=== PATIENT | male | born 1980 | race Caucasian/White ===

== ENCOUNTER 2018-08-22 21:57 | Emergency (ER) | payer OTHER ==
[2018-08-22 22:12] VITALS: BP 117/73; PULSE 63; TEMP 98.1; BMI 33.7
[2018-08-22] MEDS ORDERED: IBUPROFEN 600 MG TABLET (FP) PO ONE ×2 (22:37→22:45)
--- NOTE | 2018-08-22 22:39 | PDOC ---
History of Present Illness - General Chief Complaint: Pain, Acute Stated Complaint: HIP PAIN Time Seen by Provider: 08/22/18 22:29 History Source: Patient Exam Limitations: No Limitations - History of Present Illness Initial Comments: 38 yo M w no sig pmh presents to the ER with lower left sided back pain which radiates down his left leg after he was lifting a heavy object at work. He lifts heavy objects on a daily basis at his job and felt an acute strain as he was lifting something very heavy today. Since his back pain began it has remained the same in character. He describes it as a lightening sensation that runs from his back down his legs. He has not had any urinary or bowel incontinence. He is able to feel his entire groin and anal region. He denies any dysuria, frequency, or urgency. Also denies any associated hematuria, fevers, chills, or infections. PCP: Dr. Tiwari Psh: None reported Allergies: NKA, NKDA Social Hx: Denies smoking, drinking, and substance usage Past History - Past Medical History Allergies/Adverse Reactions: Allergies Allergy/AdvReac Type Severity Reaction Status Date / Time No Known Allergies Allergy Verified 08/22/18 22:43 COPD: No - Suicide/Smoking/Psychosocial Hx Smoking History: Never smoked Information on smoking cessation initiated: No Hx Alcohol Use: No Drug/Substance Use Hx: No Review of Systems - Review of Systems Able to Perform ROS?: Yes Comments:: CONSTITUTIONAL: Absent: fever, no chills, no fatigue EYES: Absent: visual changes ENT: Absent: ear pain, no sore throat CARDIOVASCULAR: Absent: chest pain, no palpitations RESPIRATORY: Absent: cough, no SOB GI: Absent: abdominal pain, no nausea, no vomiting, no constipation, no diarrhea GENITOURINARY: Absent: dysuria, no frequency, no hematuria MUSKULOSKELETAL: Present: Back pain Absent: no arthralgia, no myalgia SKIN: Absent: rash NEURO: Absent: headache *Physical Exam - Vital Signs Last Vital Signs Temp Pulse Resp BP Pulse Ox 98.1 F 63 20 117/73 99 08/22/18 22:07 08/22/18 22:07 08/22/18 22:07 08/22/18 22:07 08/22/18 22:07 - Physical Exam Comments: GENERAL: Well-appearing, well-nourished. No apparent distress. HEENT: Normocephalic, atraumatic. PERRL, EOM intact. CARDIOVASCULAR: Normal S1, S2. Regular rate and rhythm. PULMONARY: No evidence of respiratory distress. Lungs clear to auscultation bilaterally. No wheezing, rales or rhonchi. ABDOMEN: Soft, non-distended, non-tender. EXTREMITIES: Limited ROM in the left leg Normal ROM in other extremities. No gross deformities. SKIN: Warm, dry. No rash NEUROLOGICAL: No focal neurological deficits. Moderate Sedation - Procedure Monitoring Vital Signs: Procedure Monitoring Vital Signs Temperature 98.1 F 08/22/18 22:07 Pulse Rate 63 08/22/18 22:07 Respiratory Rate 20 08/22/18 22:07 Blood Pressure 117/73 08/22/18 22:07 O2 Sat by Pulse Oximetry (%) 99 08/22/18 22:07 Medical Decision Making - Medical Decision Making 38 yo M w no sig pmh presents to the ER with lower left sided back pain which radiates down his left leg after he was lifting a heavy object at work. DDx IBNLT: Sciatica vs herniated disc, kidney stones, uti, AAA Plan: UA, ibuprofen, re-assess. Patient has no evidence of cauda equina or conus medularis. Normal DTRs Full control of bowel and bladder. Will DC patient with outpatient follow up *DC/Admit/Observation/Transfer Diagnosis at time of Disposition: Sciatica - Discharge Dispostion Disposition: HOME Condition at time of disposition: Stable Decision to Admit order: No - Referrals Referrals: La Nena Marshall MD [Primary Care Provider] - Kevyn Arciniega MD, FA[facility] [Staff Physician] - Ant Karimi MD [Staff Physician] - - Patient Instructions Printed Discharge Instructions: DI for Sciatica, Sciatica (Alternative Therapy) , Early Surgery Relieves Sciatica Pain Faster, but Nonsurgical Treatment Is J Additional Instructions: You came into the ER with back pain. We believe you have sciatica. Take ibuprofen as needed for pain control. Drink plenty of fluids. It is important for you to schedule an appointment with either an orthopedist or a neurosurgeon to follow you back condition. You need to do physical therapy to help your back get better. Come back to the ER immediately if your pain worsens, you get a fever, cannot control your bladder or bowels, lose any feeling around your groin, or have any other new or worsening concerns. Thank you for coming to the [facility]. We hope you feel better soon! Print Language: KITTITIAN - Post Discharge Activity
--- NOTE | 2018-08-22 23:01 | PDOC ---
Attending Attestation - Resident Resident Name: Deshawn Pina - ED Attending Attestation I have performed the following: I have examined & evaluated the patient, The case was reviewed & discussed with the resident, I agree w/resident's findings & plan, Exceptions are as noted - Physicial Exam PE: 08/22/18 23:40 Patient is awake and alert, well-nourished, in no distress Normocephalic, atraumatic PERRLA, EOMI CTA RRR Pelvis is stable No midline tenderness to palpation Straight leg raise is positive on the left DTRs are +2 bilaterally at the knee/ankle Patient ambulates with a slight limp due to pain only. - Medical Decision Making 08/22/18 23:43 Patient is a 38-year-old male who presents with signs and symptoms of acute left sided radiculopathy. No evidence of cord compression/cauda equina or conus medullaris syndrome is present. We'll administer NSAIDs and will discharge with outpatient follow-up. <Mehrdad Winters - Last Filed: 08/22/18 23:40> - HPI HPI: 08/22/18 23:37 The patient is a 38 year old male with no PMH presents to the ER with back pain today. Patient localized the back pain to the left lower back, described as pinching in nature with radiation to the left lower extremity, which began after lifting a heavy object. Patient is now limping secondary to the left lower extremity pain. Patient denies any urinary or bowel incontinence. PCP: Dr. Tiwari Surgical Hx: None reported Allergies: NKDA Social Hx: Denies smoking, alcohol, or drug usage ] <Raquel Roberson - Last Filed: 08/22/18 23:56>
[2018-08-22 23:13] LABS: URINE APPEARANCE SLCLOUDY; URINE BILIRUBIN NEGATIVE (<2.0 mg/dL); URINE COLOR DKYELLOW; URINE GLUCOSE (UA) NEGATIVE (NEGATIVE); URINE KETONE TRACE (NEGATIVE); URINE LEUK ESTERASE NEGATIVE (NEGATIVE); URINE NITRITE NEGATIVE (NEGATIVE); URINE PROTEIN 2+ (NEGATIVE)
[2018-08-22 23:32] LABS: CALCIUM OXALATE CRYSTALS MODERATE /hpf (NONE SEEN); EPI CELLS RARE /HPF (FEW); URINE MUCUS FEW
== END 2018-08-22 23:58 | disposition home or self-care (01) ==
LOC: JER 21:57
DX: M54.30 Sciatica, unspecified side (principal)
CPT/HCPCS: 81003; 81015; 99283-25